=== PATIENT | female | born 1945 | race Two or more races ===

== ENCOUNTER 2025-07-18 19:42 | Emergency (ER) | payer OTHER ==
[~2025-07-18] VITALS: Ht 152.4 cm; Wt 96.2 kg
[2025-07-18 20:16] VITALS: BP 114/50; O2SAT 96
[2025-07-18 20:36] LABS: BASO % 0.3 % (0.1-1.2); EOS # 0.04 (0.04-0.54); EOS % 0.6 % (0.7-7.0); LYMPH # 2.05 (1.18-3.74); LYMPH % 33.0 % (19.3-53.1); MEAN PLATELET VOLUME 9.10 fl (9.4-12.4); MONO # 0.40 (0.24-0.82); MONO % 6.4 % (4.7-12.5); NEUT # 3.69 (1.56-6.13); NEUT % 59.4 % (34.0-71.1); RED CELL DISTRIBUTION WIDTH 14.6 % (11.6-14.4)
[2025-07-18 21:03] LABS: ALT/SGPT 16.0 U/L (12-78); AST/SGOT 12.0 U/L (15-37); BILIRUBIN TOTAL 0.54 mg/dL (0.3-1.2); BUN CREA RATIO 16.0 (7.0-25.0); CREATININE SERUM 1.61 mg/dL (0.55-1.02); GFR 30.71; GLOBULINA 3.6 G/DL (2.4-3.5); GLUCOSE FASTING 110.0 mg/dL (65-100); OSMOLALITY SERUM 290.0 MOSM/KG (275-295)
== END 2025-07-19 02:24 | disposition home or self-care (01) ==
LOC: ER 19:42
PROVIDERS: Preventive Medicine Public Health & General Preventive Medicine
DX: R55 Syncope and collapse (principal); R53.1 Weakness; I10 Essential (primary) hypertension; E11.9 Type 2 diabetes mellitus without complications; Z88.0 Allergy status to penicillin